=== PATIENT | female | born 1950 | race Caucasian/White ===

== ENCOUNTER 2016-08-13 17:01 | Emergency (ER) | payer MEDICARE | END 2016-08-13 17:57 | disposition home or self-care (01) | LOC: ER 17:01 | DX: S50.12XD Contusion of left forearm, subsequent encounter (principal); S51.802A Unspecified open wound of left forearm, initial encounter; E03.9 Hypothyroidism, unspecified; E87.5 Hyperkalemia; I10 Essential (primary) hypertension; F41.9 Anxiety disorder, unspecified; F32.9 Major depressive disorder, single episode, unspecified; K21.9 Gastro-esophageal reflux disease without esophagitis; G89.4 Chronic pain syndrome; Z90.49 Acquired absence of other specified parts of digestive tract; Z90.710 Acquired absence of both cervix and uterus; Z98.84 Bariatric surgery status; F17.210 Nicotine dependence, cigarettes, uncomplicated; Z79.899 Other long term (current) drug therapy; Z79.891 Long term (current) use of opiate analgesic | CPT/HCPCS: 90471; 90715; 99283; 99283-25 ==